=== PATIENT | female | born 1960 | race Caucasian/White ===

== ENCOUNTER 2023-07-04 18:08 | Emergency (ER) | payer SELFPAY ==
[~2023-07-04] VITALS: Ht 152.4 cm; Wt 102.1 kg
[2023-07-04 18:40] VITALS: BP 207/104; PULSE 109; RESP 20; TEMP 97.9; O2SAT 98
[2023-07-04] MEDS: CYCLOBENZAPRINE 10 MG TAB PO ONE (19:05)
[2023-07-04] MEDS: ACETAMINOPHEN EXTRA STRENGTH 500 MG TAB PO ONE (19:07)
[2023-07-04] MEDS: KETOROLAC 30 MG/ML VIAL IM ONE (19:09)
[2023-07-04] MEDS ORDERED: LID5T TP (20:26)
[2023-07-04] MEDS ORDERED: CYCL-711 PO (20:26)
[2023-07-04 21:00] VITALS: BP 170/89; PULSE 109; RESP 20; TEMP 97.9; O2SAT 98
== END 2023-07-04 21:00 | disposition home or self-care (01) ==
LOC: MED 18:08
DX: M54.50 Low back pain, unspecified (principal); J45.909 Unspecified asthma, uncomplicated; I10 Essential (primary) hypertension; M06.9 Rheumatoid arthritis, unspecified; F31.9 Bipolar disorder, unspecified; Z79.899 Other long term (current) drug therapy; Z88.0 Allergy status to penicillin
CPT/HCPCS: 72100; 96372; 99283; J1885